=== PATIENT | male | born 1960 | race African-American/Black ===

== ENCOUNTER 2019-10-09 18:13 | Observation (INO) | payer OTHER, SELFPAY ==
[2019-10-09] VITALS (11 sets, daily range): BP systolic 165–226; BP diastolic 95–128; PULSE 79–100; RESP 12–24; TEMP 36.6–37.4; O2SAT 92–99; BMI 31.6
--- NOTE | 2019-10-09 18:15 | XR_ITS ---
PROCEDURE: XR ANKLE LT MIN 3V CLINICAL INDICATION: Laceration Posttraumatic pain and swelling since 6 COMPARISON: None FINDINGS: This this diffuse soft tissue swelling is present laterally with subcutaneous gas. There is a complete fracture extending from the superior to the inferior surface of the posterior aspect of the calcaneus with mild superior displacement of the posterior fracture fragment. There is mild hallux valgus with osteoarthritic change of the 1st MTP joint and bunion formation. IMPRESSION: Minimally displaced fracture involves the mid to posterior aspect of the calcaneus. The margins of the fracture are somewhat jagged. There is associated soft tissues swelling and soft tissue gas. Dictated by: Marcell Naik MD 10/09/2019 20:04 Electronically signed by Marcell Naik MD in [place] 10/09/2019 20:04
--- NOTE | 2019-10-09 18:18 | HMH.EDLOEX ---
ED Disposition Clinical Impression: Calcaneus fracture, left Qualifiers: Encounter type: initial encounter Calcaneus location: body Fracture type: open Fracture alignment: displaced Qualified Code(s): S92.012B - Displaced fracture of body of left calcaneus, initial encounter for open fracture Open ankle wound Qualifiers: Encounter type: initial encounter Laterality: left Qualified Code(s): S91.002A - Unspecified open wound, left ankle, initial encounter Disposition: Admitted As Inpatient Condition on Discharge: Fair - Critical Care Critical Care Time: No Attestation: On , the high probability of a clinically significant, sudden or life threatening deterioration of the following system(s) required my full and direct attention, intervention and personal management. The time I documented below is in addition to time spent performing reported procedures but includes the following listed in this critical care notation. Medical Decision Making - Medical Records Medical records reviewed: Yes: I reviewed the patient's medical records. - Wayne Inquiry Pt receiving controlled substance: Yes Wayne was queried for this patient: No Reason not queried -: Emergent pt cond-no time Risks and benefits of using a controlled substance: were not discussed with pt by me Vital Signs: 10/09/19 18:15 Temperature 99.3 F Temperature Source Oral Pulse Rate [Radial] 100 H Respiratory Rate 18 Blood Pressure [Right Arm] 200/123 H Blood Pressure Mean [Right Arm] 148 Blood Pressure Source [Right Arm] Automatic Cuff Blood Pressure Position [Right Arm] Sitting 02 Sat by Pulse Oximetry 94 L Oxygen Delivery Method Room Air Orders (Tests/Meds): ED MEDICATIONS Generic Name Dose Route Start Last Admin Trade Name Freq PRN Reason Stop Dose Admin Sodium Chloride 1,000 mls @ 999 mls/hr 10/09/19 18:30 Sod Chlor 0.9% 1000ml Bag IV 10/09/19 19:30 .Q1H1M BILLY Cefazolin Sodium 1 gm/ Sodium 50 mls @ 100 mls/hr 10/09/19 18:17 Chloride IV 10/09/19 18:46 ONCE STA Protocol Discontinued Medications Generic Name Dose Route Start Last Admin Trade Name Freq PRN Reason Stop Dose Admin Hydromorphone HCl 1 mg 10/09/19 18:39 Dilaudid 2mg/Ml Syringe IV 10/09/19 18:40 ONCE ONE ORDERS Category Date Time Status Ankle XR - Left minimum 3 Views [XR ankle LT min 3V] Exams 10/09/19 18:15 Taken Stat Foot XR left minimum 3 views [XR foot LT min 3V] Stat Exams 10/09/19 18:30 Ordered - Radiology Data #1 Image(s): Ankle, Foot/Toes Image Reviewed: Yes I reviewed the patient's radiology image Calcaneus fracture Medical Decision Narrative: Concern for open joint. Patient is given Ancef, fluids. I called Dr. Ayon at approximately 1817, OR planned. X-ray of the left ankle and foot show calcaneus fracture. Lower Extremity Injury HPI - General Chief Complaint: Extremity Injury, Lower Stated Complaint: Lac on Left foot Time Seen by Provider: 10/09/19 18:19 Mode of Arrival: EMS Source of Information: Patient, EMS Limitations: No Limitations - History of Present Illness HPI Narrative: This is a 59-year-old male with a past medical history significant for hypertension, hyperlipidemia, prostatectomy, subsequent blood clot now on Xarelto who presents to the emergency department for left ankle injury that occurred just prior to arrival while at work. 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 He denies any other pain. He complains of pain only at the medial ankle. He states his tetanus is up-to-date. Pain is worse with movement. - Related Data Allergies Allergy/AdvReac Type Severity Reaction Status Date / Time No Known Allergies Allergy Verified 10/09/19 18:22 [facility] History - Hepatitis A Screen Attestation statement:: This patient has been screened for Hepatitis A risk factors. I have re
--- NOTE | 2019-10-09 18:30 | PC.NURSE ---
WENT OUT AND SPOKE WITH AND GAVE HER UPDATES , SHE IS AWARE OF POSSIBLY GOING TO SURGERY
--- NOTE | 2019-10-09 18:43 | PC.NURSE ---
181 Dr Aida fonseca.
--- NOTE | 2019-10-09 18:45 | PC.NURSE ---
SPOKE WITH OR TEAM AND NOTIFIED THEM THAT DR. GOYAL WANTS TO TAKE PATIENT TO THE OR FOR A WASHOUT, POSSIBLE EX FIX VS ORIF. NOTIFED ED THAT I HAVE SPOKE WITH SURGERY TEAM AND THEY WILL BE HERE IN THE NEXT 30 MINUTES TO TAKE PATIENT TO THE OR.
--- NOTE | 2019-10-09 18:49 | CT_ITS ---
PROCEDURE: CT FOOT LT WO CON CLINICAL HISTORY: Injury with pain and limited range of motion Lac, calcanious fx Evaluate calcaneus fracture. Preoperative evaluation, injury with pain COMPARISON: XR ANKLE LT MIN 3V from 10/09/2019 TECHNIQUE: Axial images obtained with sagittal and coronal reformats. All CT scans at the facility use one or more dose reduction, viz: automated exposure control, ma/kV adjustment per patient size (including targeted exams where dose is matched to indication, i.e. head), or iterative reconstruction technique. FINDINGS: There is an extra-articular fracture of the body of the calcaneus. This fracture is comminuted there is lateral displacement of the posterior fracture fragment by 10 mm. The fracture extends from the superior to the inferior surface of the calcaneus. Gas is present within the soft tissues medially and lateral to the fracture and also within the fracture site itself. There is an additional longitudinal component of the fracture extending into the calcaneal tuberosity laterally. There is extensive soft tissue swelling. Incidental note is made of hallux valgus with osteoarthritis of the 1st MTP joint and bunion formation. IMPRESSION: Comminuted extra-articular open fracture involves the mid aspect of the body of the calcaneus with mild lateral displacement of the posterior fracture fragment Dictated by: Marcell Naik MD 10/10/2019 08:28 Electronically signed by Marcell Naik MD in [place] 10/10/2019 08:28
--- NOTE | 2019-10-09 18:49 | CT_ITS ---
PROCEDURE: XR FOOT LT 2V CLINICAL INDICATION: POST-OP IMAGING Follow-up ORIF calcaneal fracture from COMPARISON: XR FOOT LT MIN 3V from 10/09/2019 XR TIBIA FIBULA LT 2V from 10/09/2019 FINDINGS: An external fixator has been placed. The proximal 2 pins are present over the proximal shaft of the tibia anteriorly with the distal tip in place transversely at the calcaneus obscuring the calcaneal fracture and much of the fracture fragments. There does appear to be good alignment of the posterior main calcaneal fracture fragment. Incidental note made of hallux valgus with osteoarthritis and bunion formation at the 1st MTP IMPRESSION: Good alignment status post external fixator placement stabilizing the calcaneal fracture as described above. Dictated by: Marcell Naik MD 10/10/2019 07:27 Electronically signed by Marcell Naik MD in [place] 10/10/2019 07:27
--- NOTE | 2019-10-09 19:01 | PC.NURSE ---
ANCEF IS MIXED AT BS WAITED TO START DUE TO PT GOING TO SURGERY
[2019-10-09 19:29] LABS: Basophils # 0.1 K/mm3 (0-0.2); Basophils % 0.3 % (0.1-2.0); Eosinophils # 0.1 K/mm3 (0.0-0.4); Eosinophils % 0.6 % (0.1-12.0); Hematocrit 42.3 % (42.0-52.0); Hemoglobin 13.6 g/dL (14.1-18.0); Lymphocytes # 2.2 K/mm3 (0.7-4.5); Lymphocytes % 15.4 % (10-50); Mean Corpuscular HGB Conc 32.3 g/dL (31.8-35.4); Mean Corpuscular Hemoglobin 29.1 pg (27.0-31.2); Mean Corpuscular Volume 90.3 fl (80-94); Mean Platelet Volume 9.2 fl (7.4-10.4); Monocytes # 0.6 K/mm3 (0.1-1.0); Neutrophils # 11.6 K/mm3 (1.8-7.8); Neutrophils % 79.7 % (37.0-80.0); Platelet Count 213 K/mm3 (142-424); Red Blood Count 4.68 M/mm3 (4.60-6.20); Red Cell Distribution Width 14.7 % (11.5-17.5); White Blood Count 14.6 K/mm3 (4.8-10.8)
[2019-10-09 19:39] LABS: Alanine Aminotransferase 22 U/L (12-78); Albumin Level 4.4 g/dl (3.5-5.0); Albumin/Globulin Ratio 1.3 (1.1-1.8); Alkaline Phosphatase 89 U/L (38-126); Anion Gap 11.1 mEq/L (5-15); Aspartate Amino Transferase 38 U/L (17-59); Bilirubin,Total 0.7 mg/dl (0.2-1.3); Blood Urea Nitrogen 19 mg/dl (9-20); Calcium 9.7 mg/dl (8.4-10.2); Carbon Dioxide 27 mmol/L (22.0-30.0); Chloride 104 mmol/L (98-107); Creatinine Clearance Estimated 102 mL/min (50-200); Estimated Glomerular Filt Rate 69 ml/min (>60); GFR (African American) 83 ML/MIN (>60); Globulin 3.5 g/dL (1.3-3.2); Glucose 114 mg/dl (74-100); Potassium 4.1 mmoL/L (3.5-5.1); Sodium 138 mmol/L (136-145); Total Protein,Serum 7.9 g/dl (6.3-8.2)
--- NOTE | 2019-10-09 20:14 | HMH.ORTHOCON ---
*Admission Date: 10/09/19 *Reason for consult:: open fracture L foot *History of present illness: 59yo M presents to the ER after a work injury that occurred around 1730 today. 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 He had immediate pain and hobbled off the machine to seek help; at that time he noted copious amounts of blood coming from his shoe. He was immediately taken to the ER, where an open fracture identified and Ancef given immediately. XR were then performed, which revealed an extra-articular, mildly comminuted fracture of the calcaneus. Clean dressings were applied and I was called around 1814. He has had nothing to eat or drink since 4:30pm. Medical history significant for HTN, HL. He underwent a prostatectomy earlier this year for prostate cancer, which was reportedly curative. Post-operatively he developed a pulmonary embolus, which is being treated with Xarelto. Tetanus is up to date. Review of Systems - Review of Systems Review of systems:: pertinent systems reviewed and negative unless documented below - Constitutional Denies fever(s) - Eyes Denies blurry vision - *Cardiovascular Denies chest pain - *Respiratory Denies cough, Denies shortness of breath - *Gastrointestinal Denies abdominal pain - *Musculoskeletal Reports abnormal walking, Reports joint pain, Reports deformity, Reports joint swelling - Integumentary/Breasts Reports wounds - *Neurologic Denies numbness [facility] History I have reviewed the patient's past medical history: Yes Medical History: Reports:: Hyperlipidemia, Hypertension *Have you ever received a pneumonia vaccine?: Yes *Have you received a flu vaccine this season?: Yes Other Medical History: Reports: Other (Prostatectomy, venous thrombolysis) - *Social History Educational Level: Completed High School Alcohol Intake: never *Occupational Status:: employed Housing: house *Travel in the last 8 weeks: None Family Hx:: Non-contributory Meds Allergies Allergy/AdvReac Type Severity Reaction Status Date / Time No Known Allergies Allergy Verified 10/09/19 18:22 Exam Vital signs and Labs for Last 24 Hours: Temp Pulse Resp BP Pulse Ox 99.3 F 94 H 18 184/115 H 93 L 10/09/19 18:15 10/09/19 18:44 10/09/19 18:15 10/09/19 18:44 10/09/19 18:44 Laboratory Results - last 24 hr 10/09/19 19:13: WBC 14.6 H, RBC 4.68, Hgb 13.6 L, Hct 42.3, MCV 90.3, MCH 29.1, MCHC 32.3, RDW 14.7, Plt Count 213, MPV 9.2, Neut % (Auto) 79.7, Lymph % (Auto) 15.4, [place] % (Auto) 4.0, Eos % (Auto) 0.6, Baso % (Auto) 0.3, Neut # (Auto) 11.6 H, Lymph # (Auto) 2.2, [place] # (Auto) 0.6, Eos # (Auto) 0.1, Baso # (Auto) 0.1 10/09/19 19:13: Sodium 138, Potassium 4.1, Chloride 104, Carbon Dioxide 27, Anion Gap 11.1, BUN 19, Creatinine 1.10, Estimated Creat Clear 102, Estimated GFR 69, Est GFR ( Amer) 83, Glucose 114 H, Calcium 9.7, Total Bilirubin 0.7, AST 38, ALT 22, Alkaline Phosphatase 89, Total Protein 7.9, Albumin 4.4, Globulin 3.5 H, Albumin/Globulin Ratio 1.3 I & O for Last 24 hours: Intake & Output 10/07/19 10/08/19 10/09/19 10/10/19 11:59 11:59 11:59 11:59 Weight 214 lb - Constitutional no acute distress - *Routine HEENT Exam Head: Present: normocephalic Eye: Present: EOMI ENT: Present: mucous membranes moist - *Routine Respiratory Exam Present: CTA bilaterally - *Routine Cardiovascular Exam Present: RRR - *Routine Abdominal Exam Present: soft. Absent: tenderness - *Routine Extremities Exam Comments: left foot with moderate swelling, open wound medially, approximately 10cm with exposed fascial/muscle tissue wound margins clean, slightly jagged mild bleeding from wound/skin edges, no arterial bleeding no exposed bone patient does not tolerate palpation of heel or probing of wound no gross contamination of wound L foot patient can wiggle toes L foot, +DF/PF/EHL with pain
--- NOTE | 2019-10-09 21:11 | HMH.ANESCL ---
[facility] Anesthesia Checklist - Structural Data Admitted From: Emergency Dept Planned Operative Procedure/s: I/D l ankle Consent for Planned Operative Procedure(s) Verified: Yes - Airway Assessment C-Spine Mobility Assessed: Yes TMJ Mobility Assessed: Yes Dentition: Good Dentition - Neurological Assessment Level of Consciousness: Awake, Alert, Appropriate - Anesthesia Plan Anesthesia Risk discussed: Yes Anesthesia Plan: Verified ASA Class: II Anesthesia Type: General [facility] History I have reviewed the patient's past medical history: Yes Medical History: Reports:: Hyperlipidemia, Hypertension *Have you ever received a pneumonia vaccine?: Yes *Have you received a flu vaccine this season?: Yes Other Medical History: Reports: Other (Prostatectomy, venous thrombolysis) Anesthesia experience/problems:: none - *Social History Educational Level: Completed High School Alcohol Intake: never Substance Use Type: denies use *Occupational Status:: employed Housing: house *Travel in the last 8 weeks: None Family Hx:: Non-contributory
--- NOTE | 2019-10-09 23:01 | HMH.ANESI ---
[facility] Anesthesia Record Part I Intake, IV Amount: 1,700 Estimated blood loss (mL): 50 Urine output (mL): 300 Blood Pressure: 205/105 SaO2: 95 Pulse Rate: 95 Respiratory Rate: 12 Temperature: 98 F Patient is:: Awake, Stable Stable to PACU at:: 22:55
--- NOTE | 2019-10-09 23:09 | XR_ITS ---
PROCEDURE: XR TIBIA FIBULA LT 2V CLINICAL INDICATION: POST-OP IMAGING Follow-up surgery/pain, calcaneal fracture COMPARISON: No exams were available for comparison FINDINGS: External fixator has been placed with 2 proximal screws at the proximal shaft of the tibia and distal transverse screw through the calcaneal fragment with good alignment of the fracture fragments. Antibiotic beads are also noted at the fracture site. IMPRESSION: Good alignment of the calcaneal fracture status post external fixator placement Dictated by: Marcell Naik MD 10/10/2019 07:28 Electronically signed by Marcell Naik MD in [place] 10/10/2019 07:28
--- NOTE | 2019-10-09 23:25 | HMH.ORTHHP ---
*Admission Date: 10/09/19 *Reason for consult:: open calcaneus fracture LLE *History of present illness: 59yo M who sustained an open fracture of the L calcaneus earlier this evening at work. 2g Ancef were given in the ER, followed by 4.5g of Zosyn in the OR. Irrigation and debridement of the wound was performed with 6L saline, followed by antibiotic bead placement (2g vancomycin, 160mg gentamicin), wound closure, and application of external fixator. EBL was approximately 50cc. Patient received 1700cc crystalloid in surgery, with 300cc UOP. Farooq was placed for UOP/comfort, as well as hygeine, as the patient has suffered incontinence as a result of his prostatectomy. No complications during surgery. The patient is being admitted for post-op pain control, wound care, physical therapy for gait training, and IV antibiotics. He had hypertension in the PACU, with the highest being 223/118. He was awake and alert, no reports of headache, chest pain or shortness of breath; his L foot pain was an 8 out of 10. He responded well to morphine and 10mg IV labetalol. BP decreased to 163/90 by the time he was transferred to his room. [facility] History I have reviewed the patient's past medical history: Yes Medical History: Reports:: Cancer (prostate cancer ), Hyperlipidemia, Hypertension *Have you ever received a pneumonia vaccine?: Yes *Have you received a flu vaccine this season?: Yes Other Medical History: Reports: Other (Prostatectomy, venous thrombolysis) Anesthesia experience/problems:: none Other Surgeries: Yes: Other (prostatectomy) - *Social History Educational Level: Completed High School Smoking Status: Never smoker Alcohol Intake: never Substance Use Type: denies use *Occupational Status:: employed Housing: house *Travel in the last 8 weeks: None Family Hx:: Non-contributory Review of Systems - Review of Systems Review of systems:: pertinent systems reviewed and negative unless documented below - *Neurologic Reports abnormal walking, Denies numbness Meds Allergies Allergy/AdvReac Type Severity Reaction Status Date / Time No Known Allergies Allergy Verified 10/09/19 18:22 Exam Vital signs and Labs for Last 24 Hours: Temp Pulse Resp BP Pulse Ox 98 F 95 H 12 205/105 H 93 L 10/09/19 23:03 10/09/19 23:03 10/09/19 23:03 10/09/19 23:03 10/09/19 18:44 Laboratory Results - last 24 hr 10/09/19 19:13: WBC 14.6 H, RBC 4.68, Hgb 13.6 L, Hct 42.3, MCV 90.3, MCH 29.1, MCHC 32.3, RDW 14.7, Plt Count 213, MPV 9.2, Neut % (Auto) 79.7, Lymph % (Auto) 15.4, [place] % (Auto) 4.0, Eos % (Auto) 0.6, Baso % (Auto) 0.3, Neut # (Auto) 11.6 H, Lymph # (Auto) 2.2, [place] # (Auto) 0.6, Eos # (Auto) 0.1, Baso # (Auto) 0.1 10/09/19 19:13: Sodium 138, Potassium 4.1, Chloride 104, Carbon Dioxide 27, Anion Gap 11.1, BUN 19, Creatinine 1.10, Estimated Creat Clear 102, Estimated GFR 69, Est GFR ( Amer) 83, Glucose 114 H, Calcium 9.7, Total Bilirubin 0.7, AST 38, ALT 22, Alkaline Phosphatase 89, Total Protein 7.9, Albumin 4.4, Globulin 3.5 H, Albumin/Globulin Ratio 1.3 10/09/19 19:30: Blood Type B Positive, Antibody Screen Negative I & O for Last 24 hours: Intake & Output 10/07/19 10/08/19 10/09/19 10/10/19 11:59 11:59 11:59 11:59 Intake Total 2750 / 2750 Balance 2750 / 2750 Weight 214 lb Narrative: patient is recovering in PACU - Constitutional no acute distress - *Routine HEENT Exam Head: Present: normocephalic Eye: Present: EOMI ENT: Present: mucous membranes moist - *Routine Respiratory Exam Present: CTA bilaterally. Absent: respiratory distress, wheezes - *Routine Cardiovascular Exam Present: RRR - *Routine Abdominal Exam Present: soft. Absent: tenderness - *Routine Exam Comments: farooq to gravity with clear yellow urine - *Routine Extremities Exam Comments: LLE external fixator/dressings c/d/i, no strikethrough wiggles toes; ankle motion restricted due to ex-fix sensation intact to light touch
[2019-10-10] VITALS (22 sets, daily range): BP systolic 118–179; BP diastolic 76–112; PULSE 63–89; RESP 13–23; TEMP 36.4–43; O2SAT 95–99; BMI 33.5
--- NOTE | 2019-10-10 00:07 | HMH.OPNOTE ---
Date of procedure: 10/10/19 Pre-op Diagnosis:: LEFT open calcaneus fracture; type II Post-op Diagnosis:: LEFT open calcaneus fracture; type II Procedure performed:: 1) irrigation and debridement LEFT open calcaneus fracture 2) antibiotic bead placement & complex wound closure LEFT medial heel wound 3) application of external fixator LEFT lower extremity Surgeon:: Elizabeth Parra MD Sales Representative [employer]:: Dai Najera PREMIUM SERVICE REPRESENTATIVE:: Herminio Cooney Anesthesia: GETA Estimated blood loss (mL): 50 Clinical Note:: 59yo M presents to the ER after a work injury that occurred around 1729 today. 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 He had immediate pain and hobbled off the machine to seek help; at that time he noted copious amounts of blood coming from his shoe. He was immediately taken to the ER, where an open fracture identified and Ancef given immediately. XR were then performed, which revealed an extra-articular, mildly comminuted fracture of the calcaneus. Clean dressings were applied and I was called around 1814. He has had nothing to eat or drink since 4:30pm. Medical history significant for HTN, HL. He underwent a prostatectomy earlier this year for prostate cancer, which was reportedly curative. Post-operatively he developed a pulmonary embolus, which is being treated with Xarelto. Tetanus is up to date. I discussed the nature of the patient's injury with him and examined the wound in the ER. I recommended immediate irrigation and debridement with possible wound closure, and external fixator application versus possible ORIF depending on the condition of his soft tissues and contamination. I discussed the natural history of open fractures, calcaneus fractures, and potential complications of both surgical and non-surgical treatment of them. I discussed the risk of malunion/nonunion, post-traumatic arthritis, persistent pain and potential disability, and local vs systemic infection that may be life or limb threatening seen with non-operative treatment. I also discussed the risks of surgery, including bleeding, neurovascular damage, infection, hardware failure, nonunion/malunion, persistent pain/disability, wound healing complications, need for more than one surgical procedure and the risk of future revision surgery, as well as the risk of anesthesia including heart attack, stroke and . The patient vocalized understanding of the procedure, but as he had received pain medication, we obtained consent from his for surgery. Operative findings:: no gross contamination at the site of the open fracture L calcaneus Operative note:: The patient was identified in pre-operative holding and the left foot signed by myself with a marking pen. Consent and surgical site were verified with the patient, all questions answered. He was taken to the OR and placed supine on the operating table with all extremities and bony prominences well-padded. General endotracheal anesthesia was induced. The patient had already received 1 g of IV Ancef in the emergency room, and 4.5 g of Zosyn were added at this time additionally. Once the patient was asleep, dressings were removed from the left foot and a nonsterile tourniquet placed on the upper left thigh. The left foot was then prepped sterilely with a Betadine prep and draped in the usual sterile fashion. Timeout was performed, identifying the correct patient, correct procedure, and correct site. The procedure was begun by first examining the site of the open fracture of the left foot. The wound located over the medial side of the calcaneus and measured approximately 10 cm long x 4 cm wide x 2 cm deep. The wound was copiously irrigated with 6 L of sterile saline infused with bacitracin, delivered via cystoscopy tubing attached to gravity. Bone was not readily visible through the wound, but easily probed down to the fracture site. There was not an abundant amount of
--- NOTE | 2019-10-10 00:28 | PC.NURSE ---
pt arrived to floor via stretcher from OR, accompanied by OR nurses
[2019-10-10 02:44] LABS: Microscopic,Cath URINE MICROSCOPIC (MICROSCOPIC)
[2019-10-10 02:46] LABS: Appearance,Urine/Cath CLEAR (Clear); Bilirubin,Cath Negative (Negative); Blood, Urine/Cath TRACE-I (Negative); Color,Urine/Cath YELLOW (Yellow); Glucose,Urine/Cath (UA) Negative (Negative); Ketones,Urine/Cath Negative (Negative); Leukocyte Esterase,Cath Negative (Negative); Nitrate,Cath Negative (Negative); Protein,Urine/Cath 2+ (Negative); Specific Gravity, Urine/Cath >= 1.030 (1.005-1.030); Urobilinogen,Cath 0.2 EU/dl (0.2)
[2019-10-10 02:49] LABS: Amorphous Sediment,Ur/Cath Trace /lpf; RBC,Urine/Cath Occasional # /hpf (0-3)
[2019-10-10 07:23] LABS: Basophils % 0.2 % (0.1-2.0); Hematocrit 39.4 % (42.0-52.0); Hemoglobin 12.6 g/dL (14.1-18.0); Lymphocytes # 0.8 K/mm3 (0.7-4.5); Mean Corpuscular Hemoglobin 29.1 pg (27.0-31.2); Mean Corpuscular Volume 90.9 fl (80-94); Mean Platelet Volume 9.8 fl (7.4-10.4); Monocytes # 0.2 K/mm3 (0.1-1.0); Monocytes % 1.9 % (1.7-9.3); Neutrophils # 7.5 K/mm3 (1.8-7.8); Neutrophils % 88.9 % (37.0-80.0); Platelet Count 212 K/mm3 (142-424); Red Blood Count 4.33 M/mm3 (4.60-6.20); Red Cell Distribution Width 14.8 % (11.5-17.5); White Blood Count 8.4 K/mm3 (4.8-10.8)
[2019-10-10 07:25] LABS: Chloride 103 mmol/L (98-107); Potassium 4.8 mmoL/L (3.5-5.1); Sodium 136 mmol/L (136-145)
[2019-10-10 07:28] LABS: Anion Gap 15.8 mEq/L (5-15); Blood Urea Nitrogen 13 mg/dl (9-20); Calcium 8.9 mg/dl (8.4-10.2); Carbon Dioxide 22 mmol/L (22.0-30.0); Creatinine Clearance Estimated 108 mL/min (50-200); Estimated Glomerular Filt Rate 69 ml/min (>60); GFR (African American) 83 ML/MIN (>60); Glucose 197 mg/dl (74-100); MANUAL DIFFERENTIAL MANUAL DIFFERENTIAL (MANUAL DIFF)
[2019-10-10 08:07] LABS: Lymphocytes % 10 % (10-50); Monocytes % 2 % (2-9); Neutrophils % 88 % (42-76); Platelet Estimate Normal; RBC Morphology Normal; Total Cells Counted 100
--- NOTE | 2019-10-10 08:45 | HMH.PHAVTE ---
[facility] Pharmacy VTE Monitoring - Patient Demographics Admission date: 10/09/19 Report Date: 10/10/19 Time: 08:45 Allergies/Adverse Reactions: Patient Allergies No Known Allergies Allergy (Verified 10/09/19 18:22) Height: 1.75 m Weight: 102.875 kg Patient Problems: Current Active Problems Calcaneus fracture, left (Acute) Open ankle wound (Acute) Open fracture of calcaneus (Acute) Hypertension (Acute) H/O prostatectomy (Acute) - VTE Risk Labs: VTE Related Lab Results Hgb 12.6 g/dL (14.1-18.0) L 10/10/19 06:40 Hct 39.4 % (42.0-52.0) L 10/10/19 06:40 Plt Count 212 K/mm3 (142-424) 10/10/19 06:40 BUN 13 mg/dl (9-20) D 10/10/19 06:40 Creatinine 1.10 mg/dl (0.66-1.25) 10/10/19 06:40 Estimated Creat Clear 108 mL/min (50-200) 10/10/19 06:40 VTE Score: 7 VTE Risk Level: Moderate Risk - Prophylaxis VTE Prophylaxis Ordered?: Yes Types of VTE Prophylaxis: IPCS Thigh High, Pharmacological Location of Applied Device: Right Leg Pharmacologic Type: Other (XARELTO)
--- NOTE | 2019-10-10 08:52 | HMH.PHAINT ---
HOME MEDICATIONS RECONCILED.
--- NOTE | 2019-10-10 09:44 | HMH.PTEV ---
Physical Therapy Evaluation Rehab PT IP Evaluation Start: 10/10/19 00:11 Freq: ONCE Status: Active Protocol: Document 10/10/19 09:17 PDESERTATEX (Rec: 10/10/19 09:44 PDESEROUX [id number]) Subjective/History History History Pt. is a 59 year old male with complaints of acute and activity dependent LLE ft./heel P! s/p external fixator application for LLE open calcaneus fracture; type II on 10/10/19. 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 Pt. currently reports 0/ 10 P! while seated, but states the P! increased as he was up and moving. Pt. reports living in a two-story home with significant other and children. Pt. reports able to sustain life on the first floor of his home at this time . Pt. does however report 3-4 steps to negotiate the front porch. Pt. denies owning medical equipment including standard walker, SPC, or crutches. Pt. reports I don't feel real safe with cruches anyways. 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 PMH includes Hyperlipidemia, Hypertension, Prostate Cancer, Venous Thrombolysis, and a Prostatectomy. Subjective Subjective Pt. reports I don't have any P! this morning. Pt. vocalized understanding on post surgical weight bearing precautions(NWB on LLE). Rehab PT IP Eval Objective Appearance Patient Behavior Appropriate,Cooperative Patient Orientation Person,Place,Age,Day of Week, Month,Year Difficulty following instructions none Speech Pattern Clear,Appropriate,Coherent Ambulation
--- NOTE | 2019-10-10 10:08 | HMH.ORTHPN ---
Subjective Date: 10/10/19 Time: 10:00 Principal diagnosis: L open calcaneus fracture Interval history: The patient is doing well this morning. He reports no pain in the L foot, afebrile overnight, BP stable and within acceptable range. He has been out of bed with physical therapy and able to travel 25 feet with a walker and perform transfers independently while maintaining NWB precautions. There was some bleeding through the dressings over his heel, which was reinforced with an ABD pad and kerlix. He reports no numbness in the toes and has no complaints this morning. PN: Obj Ex Vital signs: Temp Pulse Resp BP Pulse Ox 98.5 F 73 17 149/90 H 99 10/10/19 08:00 10/10/19 09:03 10/10/19 09:03 10/10/19 08:00 10/10/19 09:03 - Constitutional no acute distress - Routine HEENT Exam Head: Present: normocephalic Eye: Present: EOMI ENT: Present: mucous membranes moist - Routine Respiratory Exam Absent: accessory muscle use, respiratory distress, wheezes - Routine Cardiovascular Exam Present: RRR - Routine Abdominal Exam Present: soft. Absent: tenderness - Routine Exam Comments: farooq to gravity - Routine Extremities Exam Comments: LLE external fixator in place, moderate sanguinous strikethrough on posterior heel MARINE wrap; has been reinforced with ABD/kerlix wiggles toes L foot, ankle ROM restricted by ex-fix sensation intact to light touch L foot/ankle palpable PT/DP LLE, foot/toes warm/pink with brisk cap refill L calf soft, compressible, non-tender - Routine Skin Exam Present: warm, wounds. Absent: erythema, ecchymosis - Routine Neurological Exam Present: alert, oriented X3, altered mental status, moving all extremities, normal tone, vision grossly intact, hearing grossly intact, normal speech. Absent: sensory deficit, motor deficit - Routine Psychiatric Exam Present: normal affect - Urinary Catheter Management Farooq Cath placed during this visit: yes Urethral indwelling: Yes Reason for continuing: Surgical procedure Insertion date: 10/09/19 Progress Note: A&P (1) Open fracture of calcaneus Status: Acute Current Visit: Yes (2) Hypertension Status: Acute Current Visit: Yes (3) H/O prostatectomy Status: Acute Current Visit: Yes Assessment and Plan for All Diagnoses:: 59yo M POD 1 s/p I&D with external fixator placement L open calcaneus fracture -- continue IV antibiotics: ancef + zosyn; will continue for a full 24 hours post-op -- NWB LLE, elevate LLE on pillows at all times -- PT eval showed good mobility and use of walker while maintaining NWB precautions; do not anticipate further needs at discharge -- d/c oseas now -- continue to reinforce dressings as needed for strikethrough; would like to leave surgical dressings on as long as possible. Continue to elevate LLE; may continue to drain somewhat based on chronic Xarelto use. Hgb acceptable this morning at 12.6; down from 13.6 pre-op. -- continue home medications, including lovenox -- SCD RLE, continue to encourage incentive spirometer 10x/hr -- anticipate d/c home tomorrow, with likely definitive fixation of fracture in 1-2 weeks based on swelling and wound healing
--- NOTE | 2019-10-10 18:27 | PC.NURSE ---
Pt has been pleasant and cooperative this shift. Pt has complained of pain X2 this shift and has been medicated with Percocet and Morphine per MAR with favorable results. Lt ankle fixator in place and dressing has been reinforced X2 due to bleeding. Discussed with Dr. Parra and was instructed to reinforce dressing with ABD pads and Kerlix as needed, apply ice, and elevate the extremity. 20 G IV in the LT AC patent and infusing LR @ 75ML/HR. F/C DC'd this shift and pt is currently using the urinal to void. IPC sleeve in place to the RT leg and IS encouraged Q1H while awake. VSS. Call light within reach. Will continue to monitor.
[2019-10-11] VITALS: BP 170/73; PULSE 75; RESP 16; TEMP 36.4; O2SAT 98
[2019-10-11 04:00] VITALS: BP 137/84; PULSE 69; RESP 16; TEMP 36.6; O2SAT 97
[2019-10-11 05:18] VITALS: BMI 33.5
[2019-10-11 07:02] LABS: Erythrocyte Sedimentation Rate 38 mm/hr (0-20)
[2019-10-11 08:00] VITALS: BP 135/87; PULSE 67; RESP 17; TEMP 36.7; O2SAT 98
--- NOTE | 2019-10-11 08:51 | PC.NURSE ---
Late Entry: Pt is A&Ox4 and has ambulated OOB 2x this shift with walker and Staff SBA, pt tolerated well. Pt has c/o pain a few times t/o shift, PRN pain medications offered several times, though pt reported I have accepted that this will hurt . Pt educated on pain medications, side effects, and to not let his pain get out of control now that the anesthetic has worn off. Pt accepted Percocet 2x and Tylenol 1x during shift. Dressing to left foot was reinforced 1x d/t bleeding on the heel and surrounding the inner pin. Pt utilizes IS and reaches goal of 2500ml with ease. Lungs are CTA. ABD is soft, non-tender and pt reports having a BM on 10/10/19 evening. Pt denies any N/V/D. Call light within reach, VSS.
[2019-10-11 09:02] VITALS: PULSE 67; RESP 17; O2SAT 98
--- NOTE | 2019-10-11 11:32 | HMH.ORTHPN ---
Subjective Date: 10/11/19 Time: 10:30 Principal diagnosis: L open calcaneus fracture Interval history: The patient reports no pain this morning. His blood pressure has decreased and remained stable around 135-170 systolic. He says this is normal for him, and it remains fairly consistently in the 160's at home. No fevers or chills reported. He has been out of bed with a walker and performing transfers independently. Moderate drainage occurred through his dressings, requiring reinforcement x2 yesterday, but this has gradually slowed overnight and has dramatically decreased. He has continued to receive IV antibiotics. PN: Obj Ex Vital signs: Temp Pulse Resp BP Pulse Ox 98.0 F 67 17 135/87 98 10/11/19 08:00 10/11/19 09:02 10/11/19 09:02 10/11/19 08:00 10/11/19 09:02 - Constitutional no acute distress - Routine HEENT Exam Head: Present: normocephalic Eye: Present: EOMI ENT: Present: mucous membranes moist - Routine Respiratory Exam Present: CTA bilaterally. Absent: wheezes - Routine Cardiovascular Exam Present: RRR - Routine Abdominal Exam Present: soft. Absent: tenderness - Routine Extremities Exam Comments: LLE external fixator intact, dressings intact with moderate bloody strikethrough all dressings were removed no active drainage from medial wound (site of open fracture); prior drainage appears to have been coming from this wound all pin sites clean, dry and intact w/o drainage no erythema, ecchymosis or soft tissue/wound necrosis LLE medial heel wound sutures intact, no periwound erythema, wound margins appear healthy and flap viable thus far patient able to perform unassisted straight leg raise to aid with dressing change wiggles toes, flexion of knee intact, but ankle ROM restricted by ex-fix frame sensation intact to light touch in all distributions LLE palpable pedal pulses LLE, +DP/PT; brisk cap refill in all digits, skin pink/warm L calf soft, non-tender - Routine Skin Exam Present: warm, wounds. Absent: erythema, gangrene, ecchymosis - Routine Neurological Exam Present: alert, oriented X3, moving all extremities, normal tone, hearing grossly intact, normal speech. Absent: sensory deficit, motor deficit, altered mental status - Routine Psychiatric Exam Present: normal affect - Urinary Catheter Management Sanon Cath placed during this visit: yes, but has since been removed by the nurse Urethral indwelling: No Insertion date: 10/09/19 Removal date: 10/10/19 Progress Note: A&P (1) Open fracture of calcaneus Status: Acute Current Visit: Yes (2) Hypertension Status: Acute Current Visit: Yes (3) H/O prostatectomy Status: Acute Current Visit: Yes Assessment and Plan for All Diagnoses:: 59yo M POD 2 s/p I&D with external fixator placement L open calcaneus fracture -- d/c IV antibiotics; has been on ancef/zosyn since arrival to ER. Will d/c on a short course of oral antibiotics. 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 Detailed wound care instructions will be given at discharge. -- walker to be given at discharge; this is to use used for transfers and ambulation to maintain NWB precautions -- if drainage is experienced, reinforce dressings with ABD pad, elevate, and apply ice to ankle -- continue home medications, including Xarelto; will contact his PCP tomorrow to discuss plans for Xarelto duration, and if this is to be a life-long medication, as well as a plan for anticoagulation management for his definitive fracture fixation -- will d/c home today with follow-up in the office on
--- NOTE | 2019-10-11 12:16 | HMH.DCSUM ---
General - General Admission date:: 10/09/19 Discharge date: 10/11/19 HPI HPI: 59yo M presents to the ER after a work injury that occurred around 1730 today. 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 He had immediate pain and hobbled off the machine to seek help; at that time he noted copious amounts of blood coming from his shoe. He was immediately taken to the ER, where an open fracture identified and Ancef given immediately. XR were then performed, which revealed an extra-articular, mildly comminuted fracture of the calcaneus. Clean dressings were applied and I was called around 1814. He has had nothing to eat or drink since 4:30pm. Medical history significant for HTN, HL. He underwent a prostatectomy earlier this year for prostate cancer, which was reportedly curative. Post-operatively he developed a pulmonary embolus, which is being treated with Xarelto. Tetanus is up to date. Hospital Course Hospital Course: The patient underwent emergent irrigation and debridement of the wound on 10/09/19, where the wound was washed out with 6L saline and closed primarily over dissolvable antibiotic beads. External fixator was placed for fracture stabilization and to allow soft tissue swelling to decrease prior to definitive stabilization. IV Ancef/Zosyn were given, EBL was approximately 50cc. Patient received 1700cc crystalloid in surgery, with 300cc UOP. Sanon was placed for UOP/comfort, as well as hygeine, as the patient has suffered incontinence as a result of his prostatectomy. No complications during surgery. The patient was admitted for post-op pain control, wound care, physical therapy for gait training, and IV antibiotics. He had hypertension in the PACU, with the highest being 223/118. He was awake and alert, no reports of headache, chest pain or shortness of breath; his L foot pain was an 8 out of 10. He responded well to morphine and 10mg IV labetalol. BP decreased to 163/90 by the time he was transferred to his room. By POD 1 the patient's blood pressure had decreased to his baseline and he reported no headache, chest pain, or shortness of breath. Pain was controlled with oral medication. He mobilized well with PT and was able to transfer and ambulate independently while maintaining strict NWB precautions. Sanon was remove the morning of POD 1. Ancef and Zosyn were continued until discharge on POD 2 at 12pm. He had some drainage for the first day post-operatively, but this decreased dramatically with reinforcement and elevation; there was no active drainage at first dressing change on POD 2. He was medically stable throughout his admission, with no fevers/chills, no nausea/vomiting or abdominal pain, no chest pain or shortness of breath. He was appropriate for discharge on POD 2 and discharged home in the care of his with detailed discharge instructions. Follow-up is scheduled for 10/15/19 at 11:15am, at which time the wound will be checked and plans made for definitive fixation of his calcaneus fracture. Objective Vital signs: Temp Pulse Resp BP Pulse Ox 98.0 F 67 17 135/87 98 10/11/19 08:00 10/11/19 09:02 10/11/19 09:02 10/11/19 08:00 10/11/19 09:02 no acute distress, average body habitus - *Routine HEENT Exam Head: Present: normocephalic Eye: Present: EOMI ENT: Present: mucous membranes moist - *Routine Respiratory Exam Present: CTA bilaterally. Absent: wheezes - *Routine Cardiovascular Exam Present: RRR - *Routine Abdominal Exam Present: soft. Absent: tenderness - *Routine Extremities Exam Comments: LLE external fixator intact, dressings intact with moderate bloody strikethrough all dressings were removed no active drainage from medial wound (site of open fracture); prior drainage appears to have been coming from this wound all pin sites clean, dry and intact w/o drainage no erythema, ecchymosis or soft tissue/wound necrosis
== END 2019-10-11 13:20 | disposition home or self-care (01) ==
LOC: ER 20:13 → OR 20:18 → 2ND 23:21
PROVIDERS: Admitting Provider Orthopaedic Surgery; Emergency Provider Emergency Medicine; Visit Provider Orthopaedic Surgery
PROC: (CPT 20690; principal; 2019-10-09 20:00)
DX: S92.052 Displaced other extraarticular fracture of left calcaneus (principal); V69.88XA Occupant (driver) (passenger) of heavy transport vehicle injured in other specified transport accidents, initial encounter; Y92.63 Factory as the place of occurrence of the external cause
CPT/HCPCS: 20690; 11010; 36415; 73590; 73610; 73620; 73630; 73650; 73700; 76000; 80048; 80053; 81001; 85007; 85025; 85651; 86140; 86850; 96365; 96367; 96375; 97161; 99284; A4649; C1713; G0378; J2405; J2543; J3370

== ENCOUNTER → 2019-10-18 09:57 | Outpatient (CLI) | payer OTHER, SELFPAY ==
[2019-10-19 17:03] LABS: Covid-19 Nasal PCR Sendout UK Not Detected
== END ==
PROVIDERS: Visit Provider Orthopaedic Surgery
DX: Z03.818 Encounter for observation for suspected exposure to other biological agents ruled out (principal)
CPT/HCPCS: U0003

== ENCOUNTER 2019-10-20 09:00 | Day surgery (SDC) | payer OTHER, SELFPAY ==
--- NOTE | 2019-10-16 10:56 | SUR.PREOP ---
10/16/2019 @4887--PHONE CALL MADE TO PATIENT. PATIENT UNDERSTANDS THAT LAB WORK AND COVID TESTING NEEDS TO BE COMPLETED @ 1030 ON SATURDAY. PATIENT UNDERSTANDS IF LAB WORK AND COVID-19 TESTS ARE NOT COMPLETED BY 12PM ON THAT DATE, THE SURGERY SCHEDULED WILL BE CANCELLED AND RESCHEDULED FOR ANOTHER TIME.
[2019-10-19 13:27] VITALS: BMI 31.6
[2019-10-20] VITALS (14 sets, daily range): BP systolic 150–182; BP diastolic 80–110; PULSE 68–87; RESP 16–18; TEMP 36.2–43; O2SAT 94–99
--- NOTE | 2019-10-20 10:26 | HMH.ANESCL ---
[facility] Anesthesia Checklist - Patient Identification Patient Identification: Arm Band - Structural Data Admitted From: Home Planned Operative Procedure/s: removal of external fixation device, orif left calcaneus Consent for Planned Operative Procedure(s) Verified: Yes Verified Documents: Surgical Consent, History and Physical - NPO Status Verified Time NPO: 00:00 - Additional verifications Anesthesia Reactions: No (nausea/vomiting) Hx Blood Transfusions: No Blood Transfusion Reaction: No - Airway Assessment C-Spine Mobility Assessed: Yes (mp2) TMJ Mobility Assessed: Yes Dentition: Good Dentition - Neurological Assessment Level of Consciousness: Awake, Alert - Anesthesia Plan Anesthesia Risk discussed: Yes Anesthesia Plan: Verified ASA Class: II Anesthesia Type: General w/block (risks/benefits of nerve block explained, pt verbalizes understanding) [facility] History Medical History: Reports:: Cancer (prostate), Hyperlipidemia, Hypertension Denies:: Diabetes Mellitus Type 1, Diabetes Mellitus Type 2, Internal Pacemaker, MRSA, Seizures *Have you ever received a pneumonia vaccine?: No *Have you received a flu vaccine this season?: Yes Other Medical History: Reports: Other (hx of PE after prostatectomy). Denies: Blood Transfusion Reaction Anesthesia experience/problems:: nac Other Surgeries: Yes: Other. No: Pacemaker Amputation: No Fractures: Yes - *Social History Educational Level: Completed High School Smoking Status: Never smoker Alcohol Intake: current Alcohol Intake Frequency:: a few times a week Substance Use Type: denies use *Occupational Status:: employed Housing: house Household Members: spouse *Travel in the last 8 weeks: None Family Hx:: No significant family history
--- NOTE | 2019-10-20 12:58 | XR_ITS ---
PROCEDURE: XR CALCANEUS LT MIN 2V CLINICAL INDICATION: ORIF left calcaneous COMPARISON: No exams were available for comparison FINDINGS: Fluoroscopy time: 2 minutes and 13 seconds Multiple images are submitted during ORIF the calcaneus fracture. There are 2 lag screws inserted into the calcaneus with good alignment of the fracture fragments. Antibiotic beads are present as well. IMPRESSION: Good alignment status post ORIF calcaneal fracture Dictated by: Marcell Naik MD 10/20/2019 15:02 Electronically signed by Marcell Naik MD in [place] 10/20/2019 15:02
--- NOTE | 2019-10-20 13:22 | XR_ITS ---
PROCEDURE: XR CALCANEUS LT MIN 2V CLINICAL INDICATION: s/p ORIF left calcaneus COMPARISON: No exams were available for comparison FINDINGS: The external fixator has been removed and 2 screws are now present from the posterior aspect of the calcaneus to the mid anterior calcaneus with good alignment of the calcaneal fracture fragments. Antibiotic beads are present somewhat obscuring fine detail of the fracture site. Soft tissue gas is present laterally at the ankle region. There is a cast in place IMPRESSION: Interval ORIF calcaneal fracture with good alignment with antibiotic beads and cast in place Dictated by: Marcell Naik MD 10/20/2019 14:15 Electronically signed by Marcell Naik MD in [place] 10/20/2019 14:15
--- NOTE | 2019-10-20 13:23 | XR_ITS ---
PROCEDURE: XR FOOT LT MIN 3V CLINICAL INDICATION: s/p ORIF left calcaneus Follow-up ORIF COMPARISON: XR FOOT LT 2V from 10/09/2019 XR FOOT LT MIN 3V from 10/09/2019 FINDINGS: The external fixator has been removed and 2 screws are now present from the posterior aspect of the calcaneus to the mid anterior calcaneus with good alignment of the calcaneal fracture fragments. Antibiotic beads are present somewhat obscuring fine detail of the fracture site. There are osteoarthritic changes the 1st metatarsophalangeal hallux valgus and bunion formation. Soft tissue gas is present laterally at the ankle region. There is a cast in place IMPRESSION: Interval ORIF calcaneal fracture with good alignment with antibiotic beads and cast in place Dictated by: Marcell Naik MD 10/20/2019 14:14 Electronically signed by Marcell Naik MD in [place] 10/20/2019 14:14
--- NOTE | 2019-10-20 13:23 | HMH.ANESI ---
[facility] Anesthesia Record Part I Intake, IV Amount: 1,300 Estimated blood loss (mL): 25 Urine output (mL): 0 Blood Pressure: 176/93 SaO2: 96 Pulse Rate: 76 Respiratory Rate: 16 Temperature: 97.5 F Patient is:: Drowsy, Stable Stable to PACU at:: 13:20
--- NOTE | 2019-10-20 13:42 | HMH.OPNOTE ---
Date of procedure: 10/20/19 Pre-op Diagnosis:: L open calcaneus fracture s/p I&D with external fixator application 10/09/19 Post-op Diagnosis:: 1) L open calcaneus fracture s/p I&D with external fixator application 10/09/19 2) L lateral heel hematoma with skin necrosis Procedure performed:: 1) external fixator removal left lower extremity 2) percutaneous reduction, internal fixation left calcaneus fracture 3) wound debridement left lateral heel Surgeon:: Elizabeth Parra MD Raw Stock Drier Tender(s):: BROOK Medrano REDRYING MACHINE OPERATOR:: Patrick Mason Anesthesia: GETA, regional (popliteal block) Estimated blood loss (mL): 25 Clinical Note:: 59yo M s/p I&D L open calcaneus fracture with external fixator application and wound closure over antibiotics beads performed on 10/09/19. Earlier that evening he sustained a type II open fracture of the L calcaneus with a 10cm L x 4cm W x 2cm D medial heel wound that was not grossly contaminated. He received cefazolin and zosyn pre-operatively and for a full 48 hours after wound closure. He was additionally discharged with oral antibiotics (Bactrim DS x5 days). Fixator was placed due to significant swelling, and over the first 24 hours post-op he drained sanguinous output; he is on Xarelto at baseline. The bleeding stopped with continued elevation and icing. At his first office follow-up on 10/15/19 his medial sided wound was healing well w/o wound necrosis or drainage. Lateral heel had slight discoloration at the time, which was attributed to mild ecchymosis from the fracture. He has had no fevers or chills since the injury/surgery, no purulent drainage or malodor from the dressing. 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 His swelling had decreased to the point I felt surgical fixation of the calcaneus fracture was now feasible. I discussed risks of surgery with the patient, including bleeding, infection, continued pain and swelling in the foot despite surgery, posttraumatic arthritis, wound healing complications, and risks of anesthesia. The patient vocalized understanding of these risks and would like to proceed with surgery. No new laboratory testing was performed, as he just had labs during his last surgery/admission and everything was within normal limits. He has no new medical issues and no new complaints of chest pain or shortness of breath. He stopped his Xarelto 48 hours prior to surgery as instructed. Operative findings:: medial heel wound healing well, no wound necrosis or drainage all ex-fix pin sites clean and dry w/o erythema, drainage or sign of infection lateral heel eschar debrided, with large underlying hematoma, which was coagulated; after evacuation the wound was approximately 3cm W x 3cm H x 1.5cm D, no exposed bone. Operative note:: The patient was identified in pre-operative holding and the left foot signed by myself with a marking pen. Consent and surgical site were verified with the patient, all questions answered. Popliteal nerve block was performed by anesthesia in pre-operative holding. The patient was then taken to the OR and while remaining in his bed, 2g ancef was infused intravenously and general endotracheal anesthesia induced. Timeout was performed, identifying the correct patient, correct procedure, and correct site. Next, the external fixator was removed from the left lower extremity; this was a [place] 2 system and the appropriate wrenches and T-handle were used to remove all hardware. Prior to removing the calcaneal pin, a large electric cutter operator was used to cut the pin on one side flush with the skin, and the pin was removed on power in reverse from the opposite side avoiding pulling a contaminated pin through healthy tissue and bone. Once all ex-fix components were removed, the patient was placed into a prone position on the operative table, with gel rolls under the chest and pelvis, both arm elevated above the head on well-padded arm boards, and all bony promin
--- NOTE | 2019-10-20 14:56 | PC.NURSE ---
Anesthesia and MD notified about BP. MD recommends follow up with PCP for BP control.
--- NOTE | 2019-10-20 15:03 | SUR.PHASEI ---
Aaron ARECHIGA notified of continued elevated blood pressure prior to transfer to post op. 30mg of IV labetalol given. patient instructed to follow up with PCP and take blood pressure medications when he gets home.
--- NOTE | 2019-10-20 15:32 | HMH.ANESII ---
[facility] Anesthesia Record Part II Discharge Time: 13:50 Destination: Surgical Day Care (OP Surgery) PACU nurse assessment reviewed?: Yes Patient Condition:: Good Anesthesia Complications:: None Swallowing reflex intact?: Yes Cyanosis?: No Blood Pressure: 162/102 Pulse Rate: 75 Temperature: 97.4 F Mental Status: Alert & Oriented Pain level:: 0 Nausea and/or vomitting:: None Intake, IV Amount: 30
== END 2019-10-20 15:00 | disposition home or self-care (01) ==
PROVIDERS: PCP Internal Medicine; Visit Provider Orthopaedic Surgery
PROC: (CPT 28406; principal; 2019-10-20 11:00)
DX: S92.052 Displaced other extraarticular fracture of left calcaneus (principal); V69.88XA Occupant (driver) (passenger) of heavy transport vehicle injured in other specified transport accidents, initial encounter; Y92.63 Factory as the place of occurrence of the external cause
CPT/HCPCS: 28406; 20694; 11042; 73630; 73650; 76000; 96374; J2405; J2710

== ENCOUNTER → 2019-10-30 10:44 | Outpatient (CLI) | payer OTHER, SELFPAY ==
--- NOTE | 2019-10-30 10:48 | XR_ITS ---
PROCEDURE: XR FOOT LT MIN 3V CLINICAL INDICATION: s/p calcaneous FX- OUT OF SPLINT Follow-up fracture COMPARISON: XR FOOT LT MIN 3V from 10/09/2019 XR FOOT LT 2V from 10/09/2019 XR FOOT LT MIN 3V from 10/20/2019 FINDINGS: Status post ORIF calcaneal fracture with 2 screws from the posterior to the mid anterior aspect of the calcaneus with good alignment. Hyperdense material representing antibiotic beads are present superior to the calcaneus. A drain is present laterally. Osteoarthritic changes at the 1st MTP joint with hallux valgus Other findings:None. IMPRESSION: Good alignment status post ORIF calcaneal fracture Dictated by: Marcell Naik MD 10/30/2019 14:22 Electronically signed by Marcell Naik MD in [place] 10/30/2019 14:22
== END ==
PROVIDERS: PCP Internal Medicine; Visit Provider Orthopaedic Surgery
DX: S92.002A Unspecified fracture of left calcaneus, initial encounter for closed fracture (principal)
CPT/HCPCS: 73630

== ENCOUNTER → 2019-11-12 08:06 | Outpatient (CLI) | payer OTHER, BC, SELFPAY ==
--- NOTE | 2019-11-12 08:14 | XR_ITS ---
PROCEDURE: XR ANKLE LT MIN 3V CLINICAL INDICATION: Ankle FX FU- NWB Follow-up fracture COMPARISON: XR CALCANEUS LT MIN 2V from 10/20/2019 FINDINGS: Two screws remain in place within the calcaneus with good alignment of the fracture fragments. Antibiotic beads are once again noted which have shown some resorption since the previous exam. No bony destructive process evident. Posterior splint is present. IMPRESSION: Good alignment status post ORIF left calcaneus Dictated by: Marcell Naik MD 11/12/2019 08:59 Electronically signed by Marcell Naik MD in [place] 11/12/2019 08:59
== END ==
PROVIDERS: PCP Internal Medicine; Visit Provider Orthopaedic Surgery
DX: S92.002A Unspecified fracture of left calcaneus, initial encounter for closed fracture (principal); S91.002A Unspecified open wound, left ankle, initial encounter
CPT/HCPCS: 73610

== ENCOUNTER → 2019-11-12 11:02 | Outpatient (CLI) | payer BC, SELFPAY ==
[2019-11-12 11:57] LABS: Basophils # 0.1 K/mm3 (0-0.2); Basophils % 0.8 % (0.1-2.0); Eosinophils # 0.2 K/mm3 (0.0-0.4); Eosinophils % 2.5 % (0.1-12.0); Hematocrit 39.7 % (42.0-52.0); Hemoglobin 12.9 g/dL (14.1-18.0); Lymphocytes # 2.9 K/mm3 (0.7-4.5); Lymphocytes % 37.5 % (10-50); Mean Corpuscular HGB Conc 32.5 g/dL (31.8-35.4); Mean Corpuscular Hemoglobin 29.5 pg (27.0-31.2); Mean Corpuscular Volume 90.9 fl (80-94); Mean Platelet Volume 8.8 fl (7.4-10.4); Monocytes # 0.4 K/mm3 (0.1-1.0); Monocytes % 4.8 % (1.7-9.3); Neutrophils # 4.2 K/mm3 (1.8-7.8); Neutrophils % 54.4 % (37.0-80.0); Platelet Count 252 K/mm3 (142-424); Red Blood Count 4.37 M/mm3 (4.60-6.20); Red Cell Distribution Width 14.7 % (11.5-17.5); White Blood Count 7.6 K/mm3 (4.8-10.8)
[2019-11-12 12:26] LABS: Erythrocyte Sedimentation Rate 44 mm/hr (0-20)
[2019-11-12 14:12] LABS: Anion Gap 11.4 mEq/L (5-15); Blood Urea Nitrogen 12 mg/dl (9-20); Calcium 10.3 mg/dl (8.4-10.2); Carbon Dioxide 28 mmol/L (22.0-30.0); Chloride 101 mmol/L (98-107); Estimated Glomerular Filt Rate 77 ml/min (>60); GFR (African American) 93 ML/MIN (>60); Glucose 94 mg/dl (74-100); Potassium 4.4 mmoL/L (3.5-5.1); Sodium 136 mmol/L (136-145)
[2019-11-12 14:17] LABS: C-Reactive Protein 2.9 mg/L (0-4)
== END ==
PROVIDERS: Visit Provider Orthopaedic Surgery
DX: S92.002A Unspecified fracture of left calcaneus, initial encounter for closed fracture (principal); S91.009A Unspecified open wound, unspecified ankle, initial encounter; S92.009 Unspecified fracture of unspecified calcaneus
CPT/HCPCS: 36415; 80048; 85025; 85651; 86140

== ENCOUNTER → 2019-11-23 08:29 | Outpatient (CLI) | payer OTHER, SELFPAY ==
--- NOTE | 2019-11-23 08:34 | XR_ITS ---
PROCEDURE: XR FOOT LT MIN 3V CLINICAL INDICATION: s/p calcaneous FX- OUT OF SPLINT Follow-up fracture COMPARISON: XR FOOT LT 2V from 10/09/2019 XR FOOT LT MIN 3V from 10/09/2019 XR FOOT LT MIN 3V from 10/20/2019 XR FOOT LT MIN 3V from 10/30/2019 FINDINGS: There are osteoarthritic changes at the 1st MTP joint with mild hallux valgus. Prior ORIF the calcaneus with [address] with good alignment of the fracture fragments. There is some residual increased density superior to the calcaneus consistent with residual from antibiotic beads The joint spaces are well-preserved. No significant degenerative/arthritic changes. No erosive changes evident. Other findings:None. IMPRESSION: Good alignment status post ORIF calcaneal fracture Dictated by: Marcell Naik MD 11/23/2019 16:52 Electronically signed by Marcell Naik MD in [place] 11/23/2019 16:52
[2019-11-23 10:16] LABS: Basophils % 0.4 % (0.1-2.0); Eosinophils # 0.2 K/mm3 (0.0-0.4); Eosinophils % 1.7 % (0.1-12.0); Hematocrit 40.9 % (42.0-52.0); Hemoglobin 12.9 g/dL (14.1-18.0); Lymphocytes # 2.5 K/mm3 (0.7-4.5); Lymphocytes % 27.1 % (10-50); Mean Corpuscular HGB Conc 31.5 g/dL (31.8-35.4); Mean Corpuscular Hemoglobin 28.8 pg (27.0-31.2); Mean Corpuscular Volume 91.4 fl (80-94); Mean Platelet Volume 8.6 fl (7.4-10.4); Monocytes # 0.5 K/mm3 (0.1-1.0); Neutrophils # 6.1 K/mm3 (1.8-7.8); Neutrophils % 65.9 % (37.0-80.0); Platelet Count 257 K/mm3 (142-424); Red Blood Count 4.48 M/mm3 (4.60-6.20); Red Cell Distribution Width 14.9 % (11.5-17.5); White Blood Count 9.3 K/mm3 (4.8-10.8)
[2019-11-23 10:47] LABS: C-Reactive Protein 7.3 mg/L (0-4)
[2019-11-23 11:02] LABS: Erythrocyte Sedimentation Rate 23 mm/hr (0-20)
== END ==
PROVIDERS: Visit Provider Orthopaedic Surgery
DX: S92.002A Unspecified fracture of left calcaneus, initial encounter for closed fracture (principal); S92.009 Unspecified fracture of unspecified calcaneus
CPT/HCPCS: 36415; 73630; 85025; 85651; 86140

== ENCOUNTER → 2019-12-03 09:21 | Outpatient (CLI) | payer OTHER, SELFPAY ==
[2019-12-03 09:55] LABS: Basophils % 0.5 % (0.1-2.0); Eosinophils # 0.2 K/mm3 (0.0-0.4); Hematocrit 40.3 % (42.0-52.0); Hemoglobin 13.2 g/dL (14.1-18.0); Lymphocytes # 2.7 K/mm3 (0.7-4.5); Mean Corpuscular HGB Conc 32.7 g/dL (31.8-35.4); Mean Corpuscular Hemoglobin 29.1 pg (27.0-31.2); Mean Platelet Volume 7.9 fl (7.4-10.4); Monocytes # 0.4 K/mm3 (0.1-1.0); Neutrophils # 4.1 K/mm3 (1.8-7.8); Neutrophils % 55.5 % (37.0-80.0); Platelet Count 308 K/mm3 (142-424); Red Blood Count 4.53 M/mm3 (4.60-6.20); Red Cell Distribution Width 14.9 % (11.5-17.5); White Blood Count 7.3 K/mm3 (4.8-10.8)
[2019-12-03 10:21] LABS: C-Reactive Protein 3.2 mg/L (0-4)
[2019-12-03 11:44] LABS: Erythrocyte Sedimentation Rate 65 mm/hr (0-20)
== END ==
PROVIDERS: Visit Provider Orthopaedic Surgery
DX: S91.002A Unspecified open wound, left ankle, initial encounter (principal); S92.002A Unspecified fracture of left calcaneus, initial encounter for closed fracture; S92.009 Unspecified fracture of unspecified calcaneus
CPT/HCPCS: 36415; 85025; 85651; 86140

== ENCOUNTER → 2019-12-07 09:35 | Outpatient (CLI) | payer OTHER, SELFPAY ==
--- NOTE | 2019-12-07 09:38 | XR_ITS ---
PROCEDURE: XR CALCANEUS LT MIN 2V CLINICAL INDICATION: S/P foot FX FU COMPARISON: XR FOOT LT MIN 3V from 11/23/2019 FINDINGS: Status post calcaneal ORIF with [address] with good alignment. Fracture line is still visible but somewhat less apparent. Hyperdensity noted superior to the calcaneus and may be related to residual from antibiotic beads Other findings:None. IMPRESSION: Good alignment healing calcaneal fracture status post ORIF Dictated by: Marcell Naik MD 12/07/2019 09:51 Electronically signed by Marcell Naik MD in [place] 12/07/2019 09:51
== END ==
PROVIDERS: PCP Internal Medicine; Visit Provider Orthopaedic Surgery
DX: S92.002A Unspecified fracture of left calcaneus, initial encounter for closed fracture (principal)
CPT/HCPCS: 73650

== ENCOUNTER 2019-12-07 11:03 | Outpatient (RCR) | payer OTHER, SELFPAY | END 2019-12-07 11:30 | disposition home or self-care (01) | LOC: PT 11:03 | PROVIDERS: Visit Provider Orthopaedic Surgery | DX: S91.009A Unspecified open wound, unspecified ankle, initial encounter (principal); S92.002A Unspecified fracture of left calcaneus, initial encounter for closed fracture | CPT/HCPCS: 97760 ==

== ENCOUNTER → 2019-12-24 08:59 | Outpatient (CLI) | payer OTHER, SELFPAY ==
--- NOTE | 2019-12-24 09:05 | XR_ITS ---
PROCEDURE: XR CALCANEUS LT MIN 2V CLINICAL INDICATION: left calcaneus FX Fu Follow-up fracture COMPARISON: XR CALCANEUS LT MIN 2V from 12/07/2019 FINDINGS: Status post ORIF calcaneal fracture with good alignment. Two screws remain in place. Hyperdensity noted superiorly and medially within the soft tissues consistent with antibiotic beads. Wound VAC remains in place. IMPRESSION: No change good alignment status post ORIF calcaneal fracture Dictated by: Marcell Naik MD 12/24/2019 10:37 Electronically signed by Marcell Naik MD in [place] 12/24/2019 10:37
== END ==
PROVIDERS: PCP Internal Medicine; Visit Provider Orthopaedic Surgery
DX: S92.012A Displaced fracture of body of left calcaneus, initial encounter for closed fracture (principal)
CPT/HCPCS: 73650

== ENCOUNTER → 2020-01-14 08:32 | Outpatient (CLI) | payer OTHER, SELFPAY ==
--- NOTE | 2020-01-14 08:41 | XR_ITS ---
PROCEDURE: XR CALCANEUS LT MIN 2V CLINICAL INDICATION: calcaneus FU Follow-up fracture/ORIF COMPARISON: No exams were available for comparison FINDINGS: Status post ORIF the calcaneal fracture with [address] with good alignment of the fracture fragments. Fracture line appears slightly less apparent superiorly suggesting early healing with some overlying callus formation. There is some residual soft tissue density noted and may be related to sequela from antibiotic beads. IMPRESSION: Good alignment status post ORIF healing calcaneal fracture Dictated b Marcell Naik MD 01/14/2020 13:34 Marcell Naik MD in [place] 01/14/2020 13:34
== END ==
PROVIDERS: PCP Internal Medicine; Visit Provider Orthopaedic Surgery
DX: S92.002B Unspecified fracture of left calcaneus, initial encounter for open fracture (principal)
CPT/HCPCS: 73650

== ENCOUNTER → 2020-02-29 11:44 | Outpatient (CLI) | payer OTHER, SELFPAY ==
--- NOTE | 2020-02-29 11:49 | XR_ITS ---
PROCEDURE: XR CALCANEUS LT MIN 2V CLINICAL INDICATION: LT calcaneus FX FU Follow-up fracture COMPARISON: CR XR CALCANEUS LT MIN 2V from 01/14/2020 FINDINGS: Status post ORIF calcaneal fracture. The fracture extending cephalad caudad through the mid to posterior aspect of the calcaneus is once again noted with increasing sclerosis at the fracture line and decreasing prominence of the fracture site. Heterotopic ossification noted superior to the fracture. IMPRESSION: Good alignment status post ORIF healing calcaneal fracture Dictated by: Marcell Naik MD 02/29/2020 13:12 Marcell Naik MD in [facility] 02/29/2020 13:12
== END ==
PROVIDERS: PCP Internal Medicine; Visit Provider Orthopaedic Surgery
DX: S92.002A Unspecified fracture of left calcaneus, initial encounter for closed fracture (principal)
CPT/HCPCS: 73650

== ENCOUNTER → 2020-03-25 09:16 | Outpatient (CLI) | payer OTHER, SELFPAY ==
--- NOTE | 2020-03-25 09:25 | XR_ITS ---
PROCEDURE: XR CALCANEUS LT MIN 2V CLINICAL INDICATION: calcaneus FU Follow-up fracture/ORIF COMPARISON: CR XR CALCANEUS LT MIN 2V from 10/20/2019 CR XR CALCANEUS LT MIN 2V from 02/29/2020 FINDINGS: Two cortical screws remain present stabilizing the longitudinal calcaneal fracture. Fracture line is slightly less apparent suggesting healing. Fracture line however is still visible. There is some increased density in the soft tissues superior to the calcaneus consistent with residual from previous placed antibiotic beads. IMPRESSION: Healing calcaneal fracture status post ORIF Dictated by: Marcell Naik MD 03/25/2020 10:30 Marcell Naik MD in [facility] 03/25/2020 10:30
[2020-03-25 10:15] LABS: Basophils # 0.1 K/mm3 (0-0.2); Basophils % 0.6 % (0.1-2.0); Eosinophils # 0.2 K/mm3 (0.0-0.4); Eosinophils % 2.2 % (0.1-12.0); Hematocrit 46.3 % (42.0-52.0); Hemoglobin 14.9 g/dL (14.1-18.0); Lymphocytes # 2.9 K/mm3 (0.7-4.5); Lymphocytes % 33.4 % (10-50); Mean Corpuscular HGB Conc 32.2 g/dL (31.8-35.4); Mean Corpuscular Volume 86.9 fl (80-94); Mean Platelet Volume 8.4 fl (7.4-10.4); Monocytes # 0.4 K/mm3 (0.1-1.0); Monocytes % 5.2 % (1.7-9.3); Neutrophils % 58.6 % (37.0-80.0); Platelet Count 245 K/mm3 (142-424); Red Blood Count 5.33 M/mm3 (4.60-6.20); Red Cell Distribution Width 15.8 % (11.5-17.5); White Blood Count 8.5 K/mm3 (4.8-10.8)
[2020-03-25 10:31] LABS: C-Reactive Protein 1.6 mg/L (0-4)
[2020-03-25 10:41] LABS: Erythrocyte Sedimentation Rate 16 mm/hr (0-20)
== END ==
PROVIDERS: PCP Internal Medicine; Visit Provider Orthopaedic Surgery
DX: S92.002A Unspecified fracture of left calcaneus, initial encounter for closed fracture (principal); S92.009 Unspecified fracture of unspecified calcaneus
CPT/HCPCS: 36415; 73650; 85025; 85651; 86140

== ENCOUNTER 2020-04-05 09:30 | Outpatient (RCR) | payer OTHER, SELFPAY ==
--- NOTE | 2019-10-26 09:10 | HMH.PTOPWND ---
Rehab Outpt Wound Evaluation Rehab OP Wound Evaluation Start: 10/26/19 08:02 Freq: Status: Active Protocol: Document 10/26/19 08:50 [email or web address] (Rec: 10/26/19 09:10 PHORNE [id number]) Electronically Signed By Guillermo Bloom, PT 10/26/19 08:50 Subjective/History History History Pt is 59 yoaam who presents with L heel wounds on lateral and medial side after OR. He initially injured his foot 06/2019 when his foot was cruched between a pole and a forklift with resulting open calcaneus fx. He had ex-fix placed at that time and is no S/P ex-fix removal with ORIF performed 10/20/2019. He had resulting wounds after surgery , the worst being in the lateral side of the L heel. He reports fairly constant pain and is ambulating with SW maintaining NWB LLE. He reports PMH of HTN, HL, Prostatectomy. Subjective Subjective CUrrently pain is 7/10 in the L foot. Wound Eval Wound Left Lateral Heel Wound Type post surgical Wound Length (cm) 3.8 Wound Width (cm) 4.4 Wound Depth (cm) 1.5 Wound Bed Appearance Beefy Red Percentage Granulated (%) 100 Wound Margins Description Well Defined Undermining Position 1 0'clock Undermining Length (cm) 0.6 Edema Type Non-Pitting Edema Appearance Puffy Drainage Description Serosanguineous Drainage Amount Moderate Drainage Odor No Odor Packing Type Woundvac Sponge Primary Dressing Film Dressing Wound Secondary Dressing Type Gauze Roll/Wrap Wound Debridement Amount of Tissue None Removed Left Medial Heel Wound Type Incision Wound Length (cm) 8.5 Wound Width (cm) 6.0 Wound Bed Appearance Beefy Red,White Percentage Granulated (%) 50 Wound Margins Description Macerated Edema Type Non-Pitting Edema Appearance Puffy Drainage Description Serosanguineous Drainage Amount Moderate Drainage Odor No Odor Primary Dressing Silver Dressing
--- NOTE | 2019-11-26 10:33 | HMH.RHREAS ---
Rehab Reassessment Rehab OP Re-assessment Start: 11/26/19 10:27 Freq: Status: Active Protocol: Document 11/26/19 10:28 VERO (Rec: 11/26/19 10:33 VERO [id number]) Electronically Signed By Guillermo Bloom, PT 11/26/19 10:28 Rehab Re-assessment Subjective Subjective Pt reports no increased pain, but he continues to have pain throughout the L foot. Objective Objective Notes L heel wounds; Med: Length= 4. 3 cm, Width= 6.8 cm, Depth= 0. 7 cm, Undermining at 6 o'clock = 1.4 cm. Lateral: Length= 3.0 cm, Width = 3.4 cm, Depth= 0.6 cm. Assessment Progress Assessment Progressing as Expected Assessment Notes Wounds healing steadily with improving granulation tissue noted, drainage remains significant. Patient goals met STG: all Goals Not Met LTG: all Revised Goals none Plan Plan Continue per initial POC. Frequency of Therapy 2 x/wk Duration of therapy 8 wks Time and Billing Re-Eval Time 15 Re-Eval Billing Units 1 PHYSICIAN CERTIFICATION: I certify the specified therapy services for Jeanmarie Anthony are required, authorized, and reviewed every 30 days.
--- NOTE | 2019-12-28 14:14 | HMH.RHREAS ---
Rehab Reassessment Rehab OP Re-assessment Start: 11/26/19 10:27 Freq: Status: Active Protocol: Document 12/28/19 14:09 VERO (Rec: 12/28/19 14:14 VERO [id number]) Electronically Signed By Guillermo Bloom, PT 12/28/19 14:09 Rehab Re-assessment Subjective Subjective Pt reports he feels muche better walking without the VAC dressing on. Objective Objective Notes L heel wounds (all in cm) MED: L= 3.2, W= 4.8, D= 0.6. LAT: L= 1.0, W= 2.0. Assessment Progress Assessment Progressing as Expected Assessment Notes Pt with less maceration around med L heel wound, lateral wound healing well. Pt with improved gait pattern this date. Patient goals met STG: all Goals Not Met LTG: all Revised Goals none Plan Plan Continue per initial POC. Frequency of Therapy 2 x/wk Duration of therapy 8 wks Time and Billing Re-Eval Time 15 Re-Eval Billing Units 1 PHYSICIAN CERTIFICATION: I certify the specified therapy services for Jeanmarie Anthony are required, authorized, and reviewed every 30 days.
--- NOTE | 2020-01-28 10:14 | HMH.RHREAS ---
Rehab Reassessment Rehab OP Re-assessment Start: 11/26/19 10:27 Freq: Status: Active Protocol: Document 01/28/20 10:04 VERO (Rec: 01/28/20 10:08 VERO [id number]) Electronically Signed By Guillermo Bloom, PT 01/28/20 10:04 Rehab Re-assessment Subjective Subjective Pt reports he continues to have intermittent shooting pains and aching with prolonged activity. Objective Objective Notes L Lateral heel wound: fully epithelialized. L Medial heel wound: L= 1.8 cm , W= 2.0 cm. L ankle AROM: DF= 0-5 deg, PF= 0-36 deg Assessment Progress Assessment Progressing as Expected Assessment Notes Pt with considerabl wound healing progress, but L med heel remains open slightly. Pt AROM and L ankle strength are improving, but endurance to activity remains low. Patient goals met STG: all Goals Not Met LTG: all Revised Goals none Plan Plan Continue per initial POC. Increase L ankle AROM and strenght as able. Frequency of Therapy 2 x/wk Duration of therapy 8 wks Time and Billing Re-Eval Time 15 Re-Eval Billing Units 1 PHYSICIAN CERTIFICATION: I certify the specified therapy services for Jeanmarie Anthony are required, authorized, and reviewed every 30 days.
--- NOTE | 2020-03-02 10:55 | HMH.RHREAS ---
Rehab Reassessment Rehab OP Re-assessment Start: 11/26/19 10:27 Freq: Status: Active Protocol: Document 03/02/20 10:52 VERO (Rec: 03/02/20 10:55 VERO [id number]) Electronically Signed By Guillermo Bloom, PT 03/02/20 10:52 Rehab Re-assessment Subjective Subjective Pt reports he contineus to feel pressure and It feels like something in my ankle joint. on the L ankle. Objective Objective Notes AROM: L ankle DF= 0-12, PF= 0- 35 Gait: Pt with antalgic gait pattern with decreased heel strike and decreased stride length on the L during swing and early stance phases of gait. Assessment Progress Assessment Progressing as Expected Assessment Notes Pt with improving strength and ROM of the L ankle, all wounds appear well healed. Needs to improve gait pattern. Patient goals met STG: all Goals Not Met LTG: all Revised Goals none Plan Plan Continue per initial POC. Increase L ankle AROM and strenght as able. Frequency of Therapy 2 x/wk Duration of therapy 8 wks Time and Billing Re-Eval Time 15 Re-Eval Billing Units 1 PHYSICIAN CERTIFICATION: I certify the specified therapy services for Jeanmarie Anthony are required, authorized, and reviewed every 30 days.
--- NOTE | 2020-04-05 11:28 | HMH.RHREAS ---
Rehab Reassessment Rehab OP Re-assessment Start: 11/26/19 10:27 Freq: Status: Active Protocol: Document 04/05/20 11:24 PHORJENIFFER (Rec: 04/05/20 11:28 PHORNE [id number]) Electronically Signed By Guillermo Bloom, PT 04/05/20 11:24 Rehab Re-assessment Subjective Subjective Pt reports pain first thing in the morning 8/10 in L foot/ ankle, at best pain is 4/10, at worst pain is 8/10. Objective Objective Notes AROM L ankle: DF= 0-10 deg, PF = 0-30 deg, INV= 0-11 deg, EVER= 0-8 deg. Gait: Decreased heel strike on L LE during early stance phase of gait on L LE. Assessment Progress Assessment Slower Than Expected Assessment Notes Pt has improved strength in the L LE, AROM has stabilized. Continued 2+ pitting edema in the L lower leg and significant pain decreases mobility. Patient goals met STG: all Goals Not Met LTG: all Revised Goals none Plan Plan Continue per initial POC. Increase L ankle AROM and strenght as able. Frequency of Therapy 2 x/wk Duration of therapy 8 wks Time and Billing Re-Eval Time 15 Re-Eval Billing Units 1 PHYSICIAN CERTIFICATION: I certify the specified therapy services for Jeanmarie Anthony are required, authorized, and reviewed every 30 days.
== END 2020-06-05 09:35 | disposition home or self-care (01) ==
LOC: PT 09:30
PROVIDERS: Visit Provider Orthopaedic Surgery
DX: S92.012D Displaced fracture of body of left calcaneus, subsequent encounter for fracture with routine healing (principal)
CPT/HCPCS: 97010; 97014; 97110; 97116; 97140; 97163; 97164; 97530; 97597; 97598; 97605; 97760; G0283

== ENCOUNTER → 2020-04-29 09:22 | Outpatient (CLI) | payer OTHER, SELFPAY ==
--- NOTE | 2020-04-29 09:30 | XR_ITS ---
PROCEDURE: XR CALCANEUS LT MIN 2V CLINICAL INDICATION: calcaneus FX FU COMPARISON: CR XR CALCANEUS LT MIN 2V from 03/25/2020 FINDINGS: There are 2 screws present within the calcaneus as before stabilizing the calcaneal fracture. Fracture line is somewhat less visible compared to the previous exam. There remains good alignment. The joint spaces are well-preserved. No significant degenerative/arthritic changes. No erosive changes evident. Other findings:None. IMPRESSION: Good alignment healing calcaneal fracture Dictated by: Marcell Naik MD 04/29/2020 10:04 Marcell Naik MD in [place] 04/29/2020 10:04
== END ==
PROVIDERS: PCP Internal Medicine; Visit Provider Orthopaedic Surgery
DX: S92.002B Unspecified fracture of left calcaneus, initial encounter for open fracture (principal)
CPT/HCPCS: 73650

== ENCOUNTER → 2020-05-09 13:40 | Outpatient (CLI) | payer OTHER, SELFPAY ==
--- NOTE | 2020-05-09 13:41 | CT_ITS ---
PROCEDURE: CT ANKLE LT WO/W CON CLINICAL HISTORY: Left ankle healing left ankle pain and swelling since open calcaneal fracture and repair 10/20/19 eval fracture healing COMPARISON: CR XR CALCANEUS LT MIN 2V from 04/29/2020 TECHNIQUE: Axial images obtained with sagittal and coronal reformats. All CT scans at the facility use one or more dose reduction, viz: automated exposure control, ma/kV adjustment per patient size (including targeted exams where dose is matched to indication, i.e. head), or iterative reconstruction technique. FINDINGS: There is some generalized osteopenia the tarsal bones. There has been prior ORIF of calcaneal fracture. There are 2 screws traversing the fracture from the posterior aspect of the calcaneus directed anteriorly. Callus formation is present at the fracture site indicating healing of the fracture. The bony hardware is intact. No evidence of loosening of the screws. There is some minimal soft tissue calcification medially versus bony fragments. There is diffuse soft tissue swelling about the ankle and foot and lower leg. There are no loculated fluid collections evident. Calcification is present along the superior and medial aspect of the ankle superior to the calcaneus and may represent heterotopic ossification have a more ill-defined and diffuse appearance. IMPRESSION: 1. Healing calcaneal fracture status post ORIF with good alignment. No bony destructive process evident that would indicate osteomyelitis. 2. Diffuse subcutaneous soft tissue swelling about the lower leg and ankle with no loculated fluid collections evident. 3. Scattered hyperdensities medial to the fracture site and may be related to bony fragments with more diffuse increased density superiorly which may be related to heterotopic ossification. Dictated by: Marcell Naik MD 05/10/2020 14:44 Marcell Naik MD in [facility] 05/10/2020 14:44
[2020-05-09 14:57] LABS: Blood Urea Nitrogen 14 mg/dl (9-20); Estimated Glomerular Filt Rate 62 ml/min (>60); GFR (African American) 75 ML/MIN (>60)
== END ==
PROVIDERS: Visit Provider Orthopaedic Surgery
DX: S92.002A Unspecified fracture of left calcaneus, initial encounter for closed fracture (principal)
CPT/HCPCS: 36415; 73702; 82565; 84520; Q9967

== ENCOUNTER → 2020-07-01 08:37 | Outpatient (CLI) | payer OTHER, SELFPAY ==
--- NOTE | 2020-07-01 08:45 | XR_ITS ---
PROCEDURE: XR CALCANEUS LT MIN 2V CLINICAL INDICATION: s/p ORIF calcaneus Follow-up ORIF COMPARISON: CR XR CALCANEUS LT MIN 2V from 04/29/2020 FINDINGS: There are 2 calcaneal screws which remain in place which are not significantly changed from [place] 2020. A subtle area increased density noted in the mid calcaneal region consistent with old fracture. There is minimal calcification along the plantar surface of the calcaneus. The joint spaces are well-preserved. No significant degenerative/arthritic changes. No erosive changes evident. Other findings:None. IMPRESSION: Good alignment status post ORIF healed calcaneal fracture Dictated by: Marcell Naik MD 07/01/2020 11:45 Marcell Naik MD in [facility] 07/01/2020 11:45
== END ==
PROVIDERS: PCP Internal Medicine; Visit Provider Orthopaedic Surgery
DX: S92.002A Unspecified fracture of left calcaneus, initial encounter for closed fracture (principal)
CPT/HCPCS: 73650

== ENCOUNTER → 2020-10-24 08:57 | Outpatient (CLI) | payer OTHER, SELFPAY ==
--- NOTE | 2020-10-24 09:03 | XR_ITS ---
PROCEDURE: XR CALCANEUS LT MIN 2V CLINICAL INDICATION: s/p 1 year follow up Follow-up surgery COMPARISON: CR XR CALCANEUS LT MIN 2V from 07/01/2020 FINDINGS: Two screws once again noted within the calcaneus calcaneus. Minimal calcification noted the plantar surface of the calcaneus. Previously noted faint lucency along the superior and mid aspect of the calcaneus is less apparent consistent with healing fracture. Joint spaces are well preserved. Other findings:None. IMPRESSION: S/p ORIF calcaneal fracture with good alignment as above Dictated by: Marcell Naik MD 10/24/2020 10:18 Marcell Naik MD in [facility] 10/24/2020 10:18
== END ==
PROVIDERS: Visit Provider Orthopaedic Surgery
DX: S92.009 Unspecified fracture of unspecified calcaneus (principal)
CPT/HCPCS: 73650